=== PATIENT | female | born 1975 ===

== ENCOUNTER 2024-09-12 16:18 | Inpatient (IN) | payer BC ==
[2024-09-12] MEDS: HYDROmorphone 2 MG/ML SDV IVPUSH ONE ×2 (16:34→18:42)
[2024-09-12] MEDS: Sodium Chloride 0.9% 1,000 ML IV ONE (16:35)
[2024-09-12 16:44] LABS: BLOOD UREA NITROGEN,BUN 20 mg/dL (7-18); BUN/CREATININE RATIO 18.2 (9-20); CALCIUM 8.6 mg/dL (8.6-10.2); CARBON DIOXIDE,CO2 25 mmol/L (21-32); CHLORIDE,CL 104 mmol/L (100-110); CREATININE 1.1 mg/dL (0.55-1.02); ESTIMATED GFR 62 mL/min (>60); GLUCOSE RANDOM 140 mg/dL (80-116); HEMATOCRIT 42.5 % (34.2-48.2); HEMOGLOBIN 14.1 g/dL (11.4-15.5); MEAN CORPUSCULAR HEMOGLOBIN 28.1 pg (23.9-33.9); MEAN CORPUSCULAR HGB CONC 33.3 g/dL (31.9-34.8); MEAN CORPUSCULAR VOLUME 84.5 fL (76.7-100.5); MEAN PLATELET VOLUME 7.9 fL (7.1-12.4); PLATELET COUNT,PLT 387 x10(3)uL (151-488); POTASSIUM,K 3.9 mmol/L (3.5-5.3); RED BLOOD CELL COUNT 5.04 x10(6)uL (3.60-5.20); RED CELL DISTRIBUTION WIDTH 13.1 % (12.3-16.5); SODIUM,NA 142 mmol/L (135-145); WHITE BLOOD CELL COUNT,WBC 18.8 x10-3/uL (3.0-10.3)
[2024-09-12] MEDS: LORazepam 2 MG/ML SDV IVPUSH ONE (16:49)
[2024-09-12 16:50] LABS: A/G RATIO 0.8; ALANINE AMINOTRANSFERASE,ALT 48 U/L (12-36); ALBUMIN 3.2 g/dL (3.5-5.2); ALKALINE PHOSPHATASE 91 IU/L (56-112); ASPARTATE AMNIOTRANSFERASE,AST 32 IU/L (5-25); BILIRUBIN TOTAL 0.2 mg/dL (0.1-1.3)
[2024-09-12 16:51] LABS: EST CRCL DRUG DOSING (CG) 51.18 mL/min
[2024-09-12 16:58] LABS: LYMPHOCYTES PERCENT MAN 12 % (13-37); MONOCYTES PERCENT MAN 2 % (4-12); SEG NEUTROPHILS PERCENT MAN 86 % (46-82)
[2024-09-12] MEDS ORDERED: Naloxone 0.4 MG/ML SDV IVPUSH PRN ×2 (18:36→19:27)
[2024-09-12] MEDS: Ondansetron 4 MG/2 ML SDV IVPUSH ONE (19:27)
[2024-09-12] MEDS: Polyethylene Glycol 3350 Powder 17 GM Packet PO SCH (20:18)
[2024-09-12] MEDS: Sodium Chloride 0.9% 10 ML Syringe FLUSH PRN (20:20)
[2024-09-12] MEDS: cefTRIAXone 2 GM in Sodium Chloride 0.9% 50 ML IV ONE (20:29)
[2024-09-12 20:40] LABS: BILIRUBIN,URINE NEGATIVE (NEGATIVE); GLUCOSE,URINE NORMAL (NORMAL); KETONES,URINE 15 mg/dL (NEGATIVE); LEUKOCYTE ESTERASE,URINE NEGATIVE (NEGATIVE); NITRITE,URINE NEGATIVE (NEGATIVE); OCCULT BLOOD,URINE NEGATIVE (NEGATIVE); PROTEIN,URINE NEGATIVE (NEGATIVE); UROBILINOGEN,URINE NORMAL (NEGATIVE)
[2024-09-12 20:58] LABS: APPEARANCE,URINE CLEAR (CLEAR); COLOR,URINE YELLOW (YELLOW)
[2024-09-12] MEDS: HYDROmorphone 2 MG/ML SDV IVPUSH PRN (22:29)
[2024-09-12 22:38] LABS: HEMOGLOBIN 13.4 g/dL (11.4-15.5); MEAN CORPUSCULAR HEMOGLOBIN 29.8 pg (23.9-33.9); MEAN CORPUSCULAR HGB CONC 34.3 g/dL (31.9-34.8); PLATELET COUNT,PLT 244 x10(3)uL (151-488); RED BLOOD CELL COUNT 4.48 x10(6)uL (3.60-5.20); RED CELL DISTRIBUTION WIDTH 13.5 % (12.3-16.5); WHITE BLOOD CELL COUNT,WBC 16.4 x10-3/uL (3.0-10.3)
[2024-09-12 22:41] LABS: LACTIC ACID 1.7 mmol/L (0.4-2.0)
[2024-09-12 22:52] LABS: LYMPHOCYTES PERCENT MAN 11 % (13-37); MONOCYTES PERCENT MAN 3 % (4-12); SEG NEUTROPHILS PERCENT MAN 86 % (46-82)
[2024-09-13] MEDS ORDERED: diphenhydrAMINE 12.5 MG/5 ML Liquid ML (473 ML Bottle) PO PRN (04:02)
[2024-09-13] MEDS: diphenhydrAMINE 12.5 MG/5 ML Liquid 5 ML UD Cup PO PRN (04:33)
[2024-09-13 06:44] LABS: HEMATOCRIT 36.6 % (34.2-48.2); HEMOGLOBIN 12.1 g/dL (11.4-15.5); MEAN CORPUSCULAR HEMOGLOBIN 27.9 pg (23.9-33.9); MEAN CORPUSCULAR HGB CONC 33.1 g/dL (31.9-34.8); MEAN CORPUSCULAR VOLUME 84.5 fL (76.7-100.5); MEAN PLATELET VOLUME 7.6 fL (7.1-12.4); PLATELET COUNT,PLT 313 x10(3)uL (151-488); RED BLOOD CELL COUNT 4.33 x10(6)uL (3.60-5.20); RED CELL DISTRIBUTION WIDTH 13.3 % (12.3-16.5); WHITE BLOOD CELL COUNT,WBC 16.9 x10-3/uL (3.0-10.3)
[2024-09-13 06:54] LABS: BAND PERCENT MAN 4 % (0-6); EOSINOPHILS PERCENT MAN 1 % (0-5); LYMPHOCYTES PERCENT MAN 9 % (13-37); MONOCYTES PERCENT MAN 3 % (4-12); SEG NEUTROPHILS PERCENT MAN 83 % (46-82)
[2024-09-13] MEDS: Azithromycin 500 MG Tab PO ONE (07:12)
[2024-09-13] MEDS: Saccharomyces Boulardii (Probiotic) 250 MG Cap PO SCH (10:41)
[2024-09-13 12:47] LABS: HEMATOCRIT 36.6 % (34.2-48.2); HEMOGLOBIN 12.1 g/dL (11.4-15.5)
[2024-09-13 12:52] LABS: BLOOD UREA NITROGEN,BUN 13 mg/dL (7-18); BUN/CREATININE RATIO 14.4 (9-20); CALCIUM 8.5 mg/dL (8.6-10.2); CARBON DIOXIDE,CO2 28 mmol/L (21-32); CHLORIDE,CL 105 mmol/L (100-110); CREATININE 0.9 mg/dL (0.55-1.02); EST CRCL DRUG DOSING (CG) 62.55 mL/min; ESTIMATED GFR 78 mL/min (>60); GLUCOSE RANDOM 105 mg/dL (80-116); POTASSIUM,K 3.5 mmol/L (3.5-5.3); SODIUM,NA 142 mmol/L (135-145)
[2024-09-13] MEDS: guaiFENesin/Dextromethorphan 100-10 MG/5 ML Soln 5 ML Cup PO PRN (13:47)
[2024-09-13] MEDS ORDERED: cefTRIAXone 2 GM in Sodium Chloride 0.9% 50 ML IV SCH (15:00)
[2024-09-13] MEDS: cefTRIAXone 2 GM Vial IV SCH (15:12)
[2024-09-13] MEDS: Acetaminophen/oxyCODONE 325-5 MG Tab PO PRN (15:20)
[2024-09-13] MEDS: HYDROmorphone 2 MG/ML SDV IVPUSH PRN (20:54)
[2024-09-13 21:03] LABS: HEMATOCRIT 37.9 % (34.2-48.2); HEMOGLOBIN 12.4 g/dL (11.4-15.5)
[2024-09-14 07:07] LABS: BASOPHILS ABSOLUTE AUTO 0.1 x10-3/uL (0.0-0.1); BASOPHILS PERCENT AUTO 1.1 % (0.2-1.5); EOSINOPHILS ABSOLUTE AUTO 0.4 x10-3/uL (0.0-0.8); EOSINOPHILS PERCENT AUTO 3.6 % (0.6-8.1); HEMATOCRIT 37.3 % (34.2-48.2); HEMOGLOBIN 12.1 g/dL (11.4-15.5); LYMPHOCYTES ABSOLUTE AUTO 2.6 x10-3/uL (1.0-4.4); LYMPHOCYTES PERCENT AUTO 21.2 % (18.4-52.1); MEAN CORPUSCULAR HGB CONC 32.5 g/dL (31.9-34.8); MEAN PLATELET VOLUME 8.2 fL (7.1-12.4); MONOCYTES ABSOLUTE AUTO 0.8 x10-3/uL (0.3-1.0); MONOCYTES PERCENT AUTO 6.5 % (4.4-15.7); NEUTROPHILS ABSOLUTE AUTO 8.2 x10-3/uL (1.5-6.3); NEUTROPHILS PERCENT AUTO 67.6 % (30.8-76.2); PLATELET COUNT,PLT 282 x10(3)uL (151-488); RED BLOOD CELL COUNT 4.33 x10(6)uL (3.60-5.20); RED CELL DISTRIBUTION WIDTH 13.5 % (12.3-16.5); WHITE BLOOD CELL COUNT,WBC 12.2 x10-3/uL (3.0-10.3)
[2024-09-14 07:13] LABS: A/G RATIO 0.9; ALANINE AMINOTRANSFERASE,ALT 38 U/L (12-36); ALBUMIN 2.9 g/dL (3.5-5.2); ALKALINE PHOSPHATASE 65 IU/L (56-112); ASPARTATE AMNIOTRANSFERASE,AST 22 IU/L (5-25); BILIRUBIN TOTAL 0.2 mg/dL (0.1-1.3); BLOOD UREA NITROGEN,BUN 15 mg/dL (7-18); BUN/CREATININE RATIO 16.7 (9-20); CALCIUM 8.4 mg/dL (8.6-10.2); CARBON DIOXIDE,CO2 28 mmol/L (21-32); CHLORIDE,CL 103 mmol/L (100-110); CREATININE 0.9 mg/dL (0.55-1.02); EST CRCL DRUG DOSING (CG) 62.55 mL/min; ESTIMATED GFR 78 mL/min (>60); GLUCOSE RANDOM 91 mg/dL (80-116); POTASSIUM,K 4.5 mmol/L (3.5-5.3); PROTEIN TOTAL,TP 6.3 g/dL (6.0-8.0); SODIUM,NA 138 mmol/L (135-145)
[2024-09-14] MEDS: Ondansetron 4 MG/2 ML SDV IVPUSH PRN (10:20)
[2024-09-14] MEDS ORDERED: Acetaminophen 325 MG Tab PO PRN (12:43)
[2024-09-14] MEDS: SUMAtriptan 50 MG Tab PO ONE (12:58)
[2024-09-14] MEDS: Ondansetron 4 MG Tab.DIS PO ONE (15:47)
[2024-09-14] MEDS ORDERED: Azithromycin 250 MG Tab PO SCH (18:00)
[2024-09-14] MEDS ORDERED: Saccharomyces Boulardii (Probiotic) 250 MG Cap PO SCH (18:00)
== END 2024-09-14 16:00 | disposition home or self-care (01) | DRG 384 ==
LOC: FB.ED 16:18 → FB.MS 19:05 → OBSVTOIN 09-14 09:39
PROVIDERS: ADMIT Family Medicine; ATTEND Family Medicine
DX: S39.021A Laceration of muscle, fascia and tendon of abdomen, initial encounter (principal); J18.9 Pneumonia, unspecified organism; E87.20 Acidosis, unspecified; J40 Bronchitis, not specified as acute or chronic; R79.89 Other specified abnormal findings of blood chemistry; H54.7 Unspecified visual loss; R74.8 Abnormal levels of other serum enzymes; Z88.5 Allergy status to narcotic agent
CPT/HCPCS: 36415; 80048; 80053; 81003; 83605; 83690; 85014; 85018; 85025; 86140; 94150; 96361; 96374; 96375; 96376; 99222; 99238; 99284-25; 99285; A9270-GY; G0378; J0696; J1171; J2060; J2405; J3490; J7030; Q0162